=== PATIENT | female | born 1960 | race Asian ===

== ENCOUNTER 2016-08-19 16:32 | Emergency (ER) | payer SELFPAY ==
[~2016-08-19] VITALS: Ht 154.9 cm; Wt 59.0 kg
[2016-08-19 16:45] VITALS: BP 124/75
[2016-08-19] MEDS ORDERED: Thiamine HCl 100 MG in D5W 55 ML IVPB SCH (16:45)
--- NOTE | 2016-08-19 16:48 | Emergency Room Report ---
History of Present Illness General Chief Complaint: Altered Mental Status Source: Patient, EMS Present Illness HPI [place] She's been drinking alcohol and was incontinent of urine. The patient denies any pain at this time. She denies SI or HI. She denies any medical problems has not had seizures in the past. She drinks daily. No fevers, chills, nausea, vomiting, diarrhea, dysuria, cough, sore throat, extremity pain, trauma, rashes. Allergies: Coded Allergies: UNABLE TO ASSESS (Unverified , 08/19/16) Patient History Past Medical History: see triage record Social History: Reports: alcohol use Social History [place]ative [place] Reviewed Nursing Documentation: PMH: Agreed, PSxH: Agreed Nursing Documentation-PMH Past Medical History Deferred: Pt Cognitively Impaired Past Medical History: Deferred Review of Systems All Other Systems: negative except mentioned in HPI Physical Exam Vital Signs Date Time Temp Pulse Resp B/P Pulse Ox O2 Delivery O2 Flow Rate FiO2 08/19/16 16:29 99.0 68 16 114/76 99 Room Air Sp02 EP Interpretation: reviewed, normal General Appearance: well appearing, no apparent distress, GCS 15 Head: normocephalic Eyes: bilateral eye PERRL, bilateral eye Scleral Injection ENT: moist mucus membranes - poor dentition Neck: supple Respiratory: lungs clear, normal breath sounds Cardiovascular #1: regular rate, rhythm Cardiovascular #2: 2+ radial (R) Gastrointestinal: normal inspection, normal bowel sounds, non tender, no mass, non-distended Musculoskeletal: back normal, gait/station normal, normal range of motion Neurologic: alert, oriented x3, motor strength/tone normal, DTRs symmetric, sensory intact, speech normal, other - slight ataxia Psychiatric: mood/affect normal, no suicidal/homicidal ideation Skin: normal inspection, warm/dry, other - clothed Medical Decision Making Diagnostic Impression: Primary Impression: Alcohol intoxication Qualified Codes: F10.920 - Alcohol use, unspecified with intoxication, uncomplicated ER Course Presents with altered mental status with a history of drinking alcohol. Differential includes alcohol abuse, with slight abnormality, depression amongst others. There is no evidence of any head trauma. His nonfocal neurologic exam is it is not indicated. Her lungs are clear to chest x-rays not indicated. Because of her age we'll be obtaining a EKG and laboratory. The patient refused to have any studies done. She wants to leave and is ambulatory without difficulty. Denies suicidal or homicidal ideation. The patient is stable for outpatient observation and treatment. EKG Diagnostic Results Rate: normal Rhythm: NSR ST Segments: no acute changes Rhythm Strip Diag. Results EP Interpretation: yes Rhythm: NSR, no PVC's, no ectopy Last Vital Signs Date Time Temp Pulse Resp B/P Pulse Ox O2 Delivery O2 Flow Rate FiO2 08/19/16 18:31 98.6 68 16 118/74 98 Room Air Status: improved Disposition: HOME, SELF-CARE Condition: Improved Cruz Castle M.D. Aug 19, 2016 16:48
[2016-08-19 17:13] LABS: BASOPHILS % (AUTO) 1.2 % (0.0-2.0); LYMPHOCYTES % (AUTO) 37.4 % (20.0-45.0); MEAN CORPUSCULAR HEMOGLOBIN 34.5 PG (27.0-31.0); MEAN CORPUSCULAR HGB CONC 34.8 G/DL (32.0-36.0); MEAN CORPUSCULAR VOLUME 99 FL (80-99); MEAN PLATELET VOLUME 7.4 FL (6.5-10.1); MONOCYTES % (AUTO) 5.6 % (1.0-10.0); NEUTROPHILS % (AUTO) 54.8 % (45.0-75.0); PLATELET COUNT 266 K/UL (150-450); RED BLOOD COUNT 3.93 M/UL (4.20-5.40); RED CELL DISTRIBUTION WIDTH 11.8 % (11.6-14.8); WHITE BLOOD COUNT 9.2 K/UL (4.8-10.8)
[2016-08-19] MEDS ORDERED: Thiamine HCl 100mg/ml Inj ONE (17:16)
[2016-08-19 17:34] LABS: ACETAMINOPHEN < 10 ug/mL (10-30); ALANINE AMINOTRANSFERASE 14 U/L (3-33); ALBUMIN/GLOBULIN RATIO 1.6 (1.0-2.7); ALCOHOL 255 mg/dL; ANION GAP 22 (5-15); ASPARTATE AMINO TRANSFERASE 29 U/L (5-40); CALCIUM 9.4 mg/dL (8.6-10.2); CARBON DIOXIDE 21 mEQ/L (20-30); CHLORIDE 90 mEQ/L (98-107); CREATININE 0.7 mg/dL (0.5-0.9); GLOMERULAR FILTRATION RATE > 60 mL/min (>60); HEMOLYSIS 15; POTASSIUM 3.8 mEQ/L (3.4-4.9); SODIUM 133 mEQ/L (135-145); TOTAL PROTEIN 7.8 g/dL (6.6-8.7); TROPONIN I < 0.30 ng/mL (<=0.30)
[2016-08-19 18:09] LABS: APPEARANCE,URINE CLEAR; KETONES,URINE NEGATIVE (NEGATIVE); LEUKOCYTE ESTERASE ,URINE NEGATIVE (NEGATIVE); NITRITE,URINE NEGATIVE (NEGATIVE); PH,URINE 5 (4.5-8.0); PROTEIN,URINE NEGATIVE (NEGATIVE); UROBILINOGEN,URINE NORMAL MG/DL (0.0-1.0)
[2016-08-19 18:31] VITALS: BP 118/74
--- NOTE | 2016-08-21 19:09 | Cardiology Report ---
APPROVED REPORT EKG Measurement Heart [id number] Normal sinus rhythm Normal ECG
== END 2016-08-19 18:31 | disposition home or self-care (01) ==
LOC: EDBD 16:32 → EMR 18:30
DX: F10.920 Alcohol use, unspecified with intoxication, uncomplicated (principal)
CPT/HCPCS: 36415; 80053; 80300; 81003; 82550; 84484; 85025; 93005; 96360; 99284; G0480; 80329